=== PATIENT | male | born 1960 | race Caucasian/White ===

== ENCOUNTER 2025-02-20 18:42 | Emergency (ER) | payer MEDICARE, SELFPAY ==
--- NOTE | ~2025-02-20 | CT_ITS ---
CT HEAD NON-CONTRAST CT C-SPINE Clinical History: fall; Trauma Comparison: None Technique: Unenhanced axial images skull base to vertex. Coronal, sagittal reformats. Axial images thoracic inlet to skull base. Sagittal and coronal reformats. CT images acquired with automatic exposure control for dose reduction DLP: 681 mGy-cm Findings: Head: Left parietal craniotomy. Left parietal lobe cystic encephalomalacia, with a few marginal calcifications. Mild white matter changes, typically chronic microvascular ischemic disease. Sulci, ventricles: Unremarkable. No intracerebral hemorrhage. No evidence acute territorial infarct. No mass effect, midline shift, intra-/extra-axial fluid collection. Visualized paranasal sinuses: Maxillary disease. Mastoid air cells: Clear. C-spine: No acute fracture or listhesis. Vertebral bodies normal height and alignment. Mild degenerative changes. Disc spaces maintained. Prevertebral soft tissues within normal limits. Visualized lung apices: Mild paraseptal emphysema. Visualized thyroid: Large nodule right lobe. No enlarged cervical nodes. IMPRESSION: HEAD: 1. No acute intracranial findings. C-SPINE: 1. No acute fracture. 2. Large nodule right lobe thyroid. Recommend ultrasound. Reviewed, dictated and finalized at location R. IMPRESSION: HEAD: 1. No acute intracranial findings. C-SPINE: 1. No acute fracture. 2. Large nodule right lobe thyroid. Recommend ultrasound.
--- NOTE | ~2025-02-20 | XR_ITS ---
Examination: XR hip RT 2V w AP pelvis Clinical History: Fall, 10ft Comparison: None Technique: 2 views left hip with AP pelvis Findings/impression: 1. Fracture right ischial spine. 2. Probable fracture right lateral iliac bone along inferior margin of superior spine. Is 3. No fracture or dislocation right hip. 4. Equivocal for nondisplaced fractures through right iliac body. 5. Consider CT pelvis. Reviewed, dictated and finalized at location R.
--- NOTE | ~2025-02-20 | CT_ITS ---
EXAMINATION: CT chest abdomen pelvis w con DATE: 02/20/2025 21:03 INDICATION: Trauma. TECHNIQUE: Computed tomography (CT) of the chest, abdomen, and pelvis was performed with 100 mL Omnipaque 350 intravenous contrast. Automated exposure control and iterative reconstruction technique were employed. The dose-length product was 1343.11 mGy-cm. COMPARISON: None FINDINGS: CHEST CT: There is mild emphysema. There is mild atelectasis bilaterally. No pleural effusion. There is a 3.6 cm nodule in right thyroid lobe. The heart size is normal. No pericardial effusion. There is mild bilateral gynecomastia. There is mild thoracic spondylosis. There is mild chronic anterior wedging of multiple vertebral bodies. ABDOMEN/PELVIS CT: The liver is normal. The gallbladder is distended, which may be secondary to fasting. Calcifications in the spleen are consistent with old granulomatous disease. The pancreas and adrenal glands are normal. There is cortical thinning of the kidneys. There are no dilated loops of bowel. The appendix is normal. There are no pathologically enlarged lymph nodes. There is a comminuted fracture involving the right acetabulum and right superior and inferior pubic rami. There is extraperitoneal right pelvic hematoma. There is hyperdensity medial to the right acetabulum suspicious for a small pseudoaneurysm. There is moderate lumbar spondylosis. There is mild chronic anterior wedging of multiple vertebral natalee dies. IMPRESSION: 1. Comminuted fractures involving the right acetabulum and right superior and inferior pubic rami. 2. Extraperitoneal right pelvic hematoma. Hyperdensity medial to the right acetabulum is suspicious for a small pseudoaneurysm. 3. Mild emphysema. Reviewed, dictated and finalized at location E. IMPRESSION: 1. Comminuted fractures involving the right acetabulum and right superior and i nferior pubic rami. 2. Extraperitoneal right pelvic hematoma. Hyperdensity medial to the right acet abulum is suspicious for a small pseudoaneurysm. 3. Mild emphysema.
[2025-02-20 18:45] VITALS: BP 120/68; PULSE 72; RESP 16; TEMP 36.7; O2SAT 96
--- NOTE | 2025-02-20 19:10 | ED_ITS ---
HPI - Fall General Chief Complaint: Trauma Stated Complaint: Fall off 10ft ladder Time Seen by Provider: 02/20/25 19:01 Source: patient and RN notes reviewed Mode of arrival: EMS Limitations: no limitations History of Present Illness HPI Narrative: Patient presents with with right hip pain after he fell off of a 10 ft ladder and landed on his right hip. He reports pain is 4/10 he has not taken any medications prior to arrival either independently or by EMS. He is not on anticoagulation. He denies any paresthesias. Although he reports right hip pain he points to right inguinal area. Uses [facility] last use 2-3 days ago. Related Data Allergies Allergy/AdvReac Type Severity Reaction Status Date / Time Penicillins Allergy Mild Unknown Verified 02/20/25 18:45 [facility] Past Medical History Medical History History of brain tumor Surgical History Surgical History (Updated 02/20/25 @ 20:16 by Negra Weber MD) H/O brain surgery 1992 Social History Social History (Updated 02/20/25 @ 20:17 by Negra Weber MD) Smoking packs per day: 1 Smoking cigarettes per day: 20.0 Smoking status: Current every day smoker Alcohol intake: former Alcohol use details: previously heavy; quit approx 15 years ago Substance use: current 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 HEAD: Normocephalic, atraumatic. EYES: Non injected, non icteric ENT: Nares clear, no rhinorrhea or epistaxis. Gross auditory acuity intact. NECK: Supple. No meningismus. CHEST: Speaking in full sentences. No respiratory distress. HEART: Regular rate and rhythm. ABDOMEN: Soft, nondistended. No rigidity or guarding. Not peritoneal. PELVIS: Stable to compression without pain. Right inguinal crease tenderness to palpation though strong femoral pulse on the right. EXTREMITIES: ROM on the right limited due to pain. No lower extremity edema. Right DP pulse palpable and strong. : Normal male external genitalia. Circumcised. No scrotal swelling. No blood at the urethral meatus. SKIN: Warm, dry. Scattered lesions throughout legs, bilateral, appear chronic. NEURO: No focal deficits. Alert and oriented. Answering questions. Following commands. Normal speech without aphasia or dysarthria. PSYCH: Congruent mood and affect. Course Vital Signs Vital signs: Vital Signs Temperature 98.1 F 02/20/25 18:45 Pulse Rate 72 02/20/25 18:45 Respiratory Rate 16 02/20/25 18:45 Blood Pressure 120/68 02/20/25 18:45 Pulse Oximetry 96 02/20/25 18:45 Temperature 98.1 F 02/20/25 18:45 Pulse Rate 67 02/20/25 22:27 Respiratory Rate 16 02/20/25 22:27 Blood Pressure 126/61 02/20/25 22:27 Pulse Oximetry 97 02/20/25 22:27 MDM - Fall MDM Narrative Medical decision making narrative: Patient presents after falling off of a 10 ft ladder. He was initially reporting right hip pain but he points to right inguinal crease. Not on anticoagulation. No paresthesias. ROM limited secondary to pain. In the emergency department they are afebrile with vital signs within normal limits. Plain film ordered from triage. Lamona ordered as is urine to assess for hematuria. Xray as below. Discussed current known injuries with [facility] consultant orthopedic surgeon Dr Zhu who concurs with transfer to trauma center. FAST exam performed (POCUS, point of care ultrasound) at bedside and negative for acute hemorrhagic collection. Bladder intact. He does appear to have a distended gallbladder. He is still having pain after initial PO analgesic. IV Dilaudid ordered. Spoke with [facility] [place] regarding trauma transfer. Spoke with ED physician Dr Curiel who accepts as a Level 3 given pelvic fracture is not unstable. Advises to call back if other injuries identified or change in condition. Patient has a very mild leukocytosis. He has a normocytic anemia with no prior for comparison. Patient has elevations of ALT and ALT with no prior for comparison. Patient is updated in reassessed at approximately 9:10 p.m.. His pain is markedly improved and he is resting comfortably. VS remain unchanged at 10:15pm. Once CT results, [facility] updated, first to the transfer center and then ED attending Dr Curiel updated at 10:18pm. Fine to Keep him a Level 3 at this time unless clinical condition changes. EMS transportation arranged. Patient remained hemodynamically stable without requiring additional analgesic medication or intervention. Differential Diagnosis Differential diagnosis: Likely other (Right hip fracture/dislocation, considering MSK injury , intra-abdominal pathology) Lab Data Attestation: I reviewed the patient's lab results. 02/20/25 20:33 02/20/25 20:33 Labs: Lab Results 02/20/25 Range/Units 20:33 WBC 10.8 H (4.5-10.0) K/mm3 RBC 4.23 L (4.6-6.20) M/mm3 Hgb 13.2 L (14.0-18.0) g/dL Hct 39.5 L (42.0-52.0) % MCV 93.4 (80-100) fl MCH 31.2 (26-34) pg MCHC 33.4 (32-36) g/dl RDW 14.3 (11.5-14.5) % Plt Count 169 (150-375) k/mm3 MPV 10.9 H (7.4-10.4) fl Immature Gran % (Auto) 0.6 H (0-0.5) % Neut % (Auto) 71.1 (45.5-73.1) % Lymph % (Auto) 17.2 L (18.3-44.2) % [place] % (Auto) 10.2 H (2.6-8.5) % Eos % (Auto) 0.6 (0-4.4) % Baso % (Auto) 0.3 (0.2-1.2) % Lymph # (Auto) 1.86 (0.9-3.2) K/mm3 [place] # (Auto) 1.1 H (0.1-0.6) K/mm3 Eos # (Auto) 0.1 (0-0.3) K/mm3 Baso # (Auto) 0.0 (0.0-0.1) K/mm3 Abs Immat Gran (auto) 0.06 H (0.00-0.031) K/mm3 Absolute Neuts (auto) 7.7 H (1.3-6.7) K/mm3 Absolute Nucleated RBC 0.000 (0.0-0.012) K/mm3 Nucleated RBC % 0.0 (0.0-0.2) % PT 14.6 (11.1-14.7) Seconds INR 1.2 APTT 24.0 (22.3-36.8) Seconds Sodium 133 L (137-145) mmol/L Potassium 4.5 (3.4-5.0) mmol/L Chloride 102 (98-107) mmol/L Carbon Dioxide 22 (22-30) mmol/L Anion Gap 9 (4-12) mmol/L BUN 13 (9-20) mg/dL Creatinine 1.10 (0.7-1.3) mg/dL Estim Creat Clear Calc 58 ml/min Estimated GFR > 60 (59 - ) Glucose 135 H (65-110) mg/dL Calcium 8.8 (8.4-10.2) mg/dL Total Bilirubin 0.9 (0.2-1.3) mg/dL AST 81 H (17-59) U/L ALT 115 H (6-50) U/L Alkaline Phosphatase 99 (38-126) U/L Total Protein 8.7 H (6.3-8.2) g/dL Albumin 4.2 (3.5-5.1) g/dL Ethyl Alcohol < 10 (<10) mg/dL Imaging Data Attestation: I personally reviewed and interpreted this imaging study as follows: My impression: No obvious hip fracture dislocation on the right however there is discontinuity the ischial and iliac on the right on my independent interpretation of Xray. No obvious widening of pubic symphysis. Evidence of prior surgical resection within brain on my independent interpretation of imaging CT chest abdomen pelvis reviewed by myself which shows gastric distention, gallbladder distention, and bladder distention on my independent interpretation Radiologist's impression: CT chest Stat Rad: No acute finding. CT abdomen pelvis Stat Rad: Right acetabular complex fractures involving superior pubic ramus and right inferior pubic ramus fractures. Soft tissue hematomas or other fractures. Active tiny 0.7 cm hemorrhage in the extraperitoneal soft tissues axial series 3, image 220. Urinary bladder deviation to the left mild wall thickening on the right, if concern for urinary bladder injuries recommend CT cystogram. Otherwise no acute finding. CT C spine Stat Rad: No acute C spine finding. CT Head Stat Rad: No acute intracranial abnormality. Old left calvarial operative findings and cerebral operative bed findings. Right chronic maxillary sinusitis. Discharge Plan Discharge Clinical Impression: Fall from ladder, Closed right ischial fracture, Fracture of iliac crest, Normocytic anemia, Transaminitis, Acetabulum fracture, right, Closed fracture of superior pubic ramus, Fracture of right inferior pubic ramus Patient Disposition: Acute Care Hospital Condition: Stable Patient Language: Japanese Time of Disposition: 20:41
[2025-02-20] MEDS: HYDROcodone/acetaminophen (*CRX) 5-325 MG TABLET 1 TAB PO (19:34)
[2025-02-20 20:39] LABS: Hematocrit 39.5 % (42.0-52.0); Hemoglobin 13.2 g/dL (14.0-18.0); Immature Granulocyte Percent A 0.6 % (0-0.5); Lymphocytes Absolute Auto 1.86 K/mm3 (0.9-3.2); Mean Corpuscular HGB Conc 33.4 g/dl (32-36); Mean Corpuscular Hemoglobin 31.2 pg (26-34); Mean Corpuscular Volume 93.4 fl (80-100); Nucleated Red Blood Cells Absolute Auto 0.000 K/mm3 (0.0-0.012); Nucleated Red Blood Cells Perc 0.0 % (0.0-0.2); Platelet Count Result 169 k/mm3 (150-375); Red Blood Count 4.23 M/mm3 (4.6-6.20); White Blood Count 10.8 K/mm3 (4.5-10.0)
[2025-02-20 20:48] LABS: Alanine Aminotransferase 115 U/L (6-50); Albumin Level 4.2 g/dL (3.5-5.1); Alkaline Phosphatase 99 U/L (38-126); Anion Gap 9 mmol/L (4-12); Aspartate Amino Transferase 81 U/L (17-59); Bilirubin,Total 0.9 mg/dL (0.2-1.3); Blood Urea Nitrogen 13 mg/dL (9-20); Calcium 8.8 mg/dL (8.4-10.2); Carbon Dioxide 22 mmol/L (22-30); Chloride 102 mmol/L (98-107); Estimated CRCL calculation 58 ml/min; Estimated Glomerular Filt Rate > 60; Glucose 135 mg/dL (65-110); Potassium 4.5 mmol/L (3.4-5.0); Sodium 133 mmol/L (137-145); Total Protein 8.7 g/dL (6.3-8.2)
[2025-02-20] MEDS: HYDROmorphone HCL INJ (*CRX) 1 MG/ML SYR 0.5 MG IV PUSH (20:59)
[2025-02-20 21:12] LABS: INR 1.2; Prothrombin Time 14.6 Seconds (11.1-14.7)
[2025-02-20 21:13] LABS: Partial Thromboplastin Time 24.0 Seconds (22.3-36.8)
[2025-02-20 22:27] VITALS: BP 126/61; PULSE 67; RESP 16; O2SAT 97
== END 2025-02-20 23:21 | disposition short-term general hospital (02) ==
PROVIDERS: Emergency Provider Student in an Organized Health Care Education/Training Program
DX: S32.691A Other specified fracture of right ischium, initial encounter for closed fracture (principal); S32.591A Other specified fracture of right pubis, initial encounter for closed fracture; S32.391A Other fracture of right ilium, initial encounter for closed fracture; S32.401A Unspecified fracture of right acetabulum, initial encounter for closed fracture; D64.9 Anemia, unspecified; R74.01 Elevation of levels of liver transaminase levels; F17.210 Nicotine dependence, cigarettes, uncomplicated; W11.XXXA Fall on and from ladder, initial encounter; E04.1 Nontoxic single thyroid nodule
CPT/HCPCS: 36415; 70450; 71260; 72125; 73502; 74177; 80053; 82077; 85025; 85610; 85730; 96374; 99285; A9270; J1171; Q9967